=== PATIENT | female | born 1940 | race Caucasian/White ===

== ENCOUNTER 2021-04-11 22:57 | Emergency (ER) | payer MEDICARE ==
[2021-04-12] MEDS ORDERED: Bacitracin 1 PK ONE (00:17)
[2021-04-12] MEDS ORDERED: Lidocaine 1% (PF) 30 ML VIAL ONE (00:18)
[2021-04-12] MEDS ORDERED: Morphine 4 MG/ML VIAL ONE (00:18)
[2021-04-12] MEDS ORDERED: Ondansetron PF 4 MG/2 ML Vial ONE (00:18)
[2021-04-12 00:23] LABS: #Basophils 0.1 10x3/uL (0.0-0.2); #Eosinphils 0.8 10x3/uL (0.0-0.5); #Neutrophils 7.9 10x3/uL (1.5-8.4); %Eosinophils 6.6 % (0.0-6.0); %Monocytes 8.4 % (0.0-10.0); %Neutrophils 67.7 % (40.0-75.0); Hemoglobin 10.8 g/dL (12.0-15.5); Mean Corpuscular HGB CONC 30.6 g/dL (32.0-36.0); Mean Corpuscular Hemoglobin 27.5 pg (27.0-33.0); Mean Corpuscular Volume 89.8 fl (81.6-98.3); Mean Platelet Volume 11.9 fl (7.4-10.4); Platelet Count 192 10x3/uL (150-450); RBC Distribution Width 14.1 % (11.5-14.5); Red Blood Cell (RBC) Count 3.93 10x6/uL (3.90-5.03); White Blood Cell (WBC) Count 11.7 10x3/uL (3.5-10.5)
[2021-04-12 00:37] LABS: ALT (SGPT) 12 U/L (8-55); AST (SGOT) 20 U/L (5-34); Albumin 3.9 g/dL (3.4-4.8); Alkaline Phosphatase 112 U/L (40-110); Anion Gap 13 mmol/L (10-20); BUN (Urea Nitrogen) 20 mg/dL (9.8-20.1); Bilirubin, Total 0.3 mg/dL (0.2-1.2); Calc. Creatinine Clearance 0 mL/min (70-130); Calcium 9.2 mg/dL (7.8-10.44); Carbon Dioxide 21 mmol/L (23-31); Chloride 107 mmol/L (98-107); Globulin 2.5 g/dL (2.4-3.5); Glucose 170 mg/dL (83-110); Magnesium 1.9 mg/dL (1.6-2.6); Protein, Total 6.4 g/dL (5.8-8.1); Sodium 137 mmol/L (136-145)
[2021-04-12 00:45] LABS: INR-International Normal Ratio 0.9; PTT 23.9 sec (22.0-33.0); Prothrombin Time 10.2 sec (9.5-12.1)
== END 2021-04-12 02:13 | disposition short-term general hospital (02) ==
LOC: CSHERS 22:57
DX: S06.5X9A Traumatic subdural hemorrhage with loss of consciousness of unspecified duration, initial encounter (principal); S02.2XXA Fracture of nasal bones, initial encounter for closed fracture; S01.511A Laceration without foreign body of lip, initial encounter; E07.89 Other specified disorders of thyroid; I25.10 Atherosclerotic heart disease of native coronary artery without angina pectoris; I10 Essential (primary) hypertension; Z79.899 Other long term (current) drug therapy; W19.XXXA Unspecified fall, initial encounter; Y92.009 Unspecified place in unspecified non-institutional (private) residence as the place of occurrence of the external cause
CPT/HCPCS: 12011; 36415; 70450; 70486; 72125; 80053; 83735; 84484; 85025; 85610; 85730; 86850; 86900; 86901; 93005; 96374; 96375; J2001; J2270; J2405

== ENCOUNTER 2022-12-01 13:26 | Outpatient (CLI) | payer MEDICARE | END 2022-12-01 13:27 | disposition home or self-care (01) | LOC: CSHMAMMO 13:26 | PROVIDERS: ATTEND Family Medicine | DX: Z12.31 Encounter for screening mammogram for malignant neoplasm of breast (principal) | CPT/HCPCS: 77063; 77067 ==

== ENCOUNTER 2022-12-29 10:19 | Outpatient (CLI) | payer MEDICARE | END 2022-12-29 10:20 | disposition home or self-care (01) | LOC: CSHULT 10:19 | PROVIDERS: ATTEND Family Medicine | DX: R10.13 Epigastric pain (principal); K80.20 Calculus of gallbladder without cholecystitis without obstruction; K82.9 Disease of gallbladder, unspecified | CPT/HCPCS: 76700 ==

== ENCOUNTER 2023-01-12 09:44 | Day surgery (SDC) | payer MEDICARE ==
[2023-01-10 15:08] VITALS: BMI 23.4
[2023-01-12] MEDS ORDERED: PROPOFOL 20 ML ONE (10:19)
[2023-01-12] MEDS ORDERED: Lidocaine 2% MPF 10 ML AMP (For Epidural Use) ONE (10:19)
== END 2023-01-12 12:32 | disposition home or self-care (01) ==
LOC: CSHSDC 09:44
PROVIDERS: ATTEND Internal Medicine Gastroenterology
PROC: 0DB98ZX Excision of Duodenum, Via Natural or Artificial Opening Endoscopic, Diagnostic (ICD-10-PCS; principal; 2023-01-12)
DX: K21.9 Gastro-esophageal reflux disease without esophagitis (principal); K29.50 Unspecified chronic gastritis without bleeding; K44.9 Diaphragmatic hernia without obstruction or gangrene; I25.10 Atherosclerotic heart disease of native coronary artery without angina pectoris; I10 Essential (primary) hypertension; Z88.5 Allergy status to narcotic agent; Z88.8 Allergy status to other drugs, medicaments and biological substances
CPT/HCPCS: 88305; J2704

== ENCOUNTER 2023-01-19 09:13 | Emergency (ER) | payer MEDICARE ==
[2023-01-19 10:27] LABS: #Basophils 0.1 10x3/uL (0.0-0.2); #Eosinphils 0.4 10x3/uL (0.0-0.5); #Monocytes 0.7 10x3/uL (0.0-1.1); #Neutrophils 4.4 10x3/uL (1.5-8.4); %Basophils 1.1 % (0.0-2.0); %Eosinophils 5.4 % (0.0-6.0); %Lymphocytes 21.7 % (18.0-47.0); %Neutrophils 61.5 % (40.0-75.0); Hematocrit 40.7 % (34.9-44.5); Hemoglobin 13.8 g/dL (12.0-15.5); Mean Corpuscular HGB CONC 33.9 g/dL (32.0-36.0); Mean Corpuscular Hemoglobin 30.6 pg (27.0-33.0); Mean Corpuscular Volume 90.2 fl (81.6-98.3); Mean Platelet Volume 11.5 fl (7.4-10.4); Platelet Count 235 10x3/uL (150-450); RBC Distribution Width 13.6 % (11.5-14.5); Red Blood Cell (RBC) Count 4.51 10x6/uL (3.90-5.03); White Blood Cell (WBC) Count 7.2 10x3/uL (3.5-10.5)
[2023-01-19 10:54] LABS: ALT (SGPT) 12 U/L (8-55); AST (SGOT) 23 U/L (5-34); Albumin 3.5 g/dL (3.4-4.8); Alkaline Phosphatase 81 U/L (40-110); Anion Gap 14 mmol/L (10-20); BUN (Urea Nitrogen) 7 mg/dL (9.8-20.1); Bilirubin, Total 1.1 mg/dL (0.2-1.2); Calc. Creatinine Clearance 0 mL/min (70-130); Calcium 9.5 mg/dL (7.8-10.44); Carbon Dioxide 34 mmol/L (23-31); Chloride 94 mmol/L (98-107); Estimated GFR 43; Globulin 2.5 g/dL (2.4-3.5); Glucose 132 mg/dL (83-110); Sodium 140 mmol/L (136-145)
[2023-01-19 11:01] LABS: Potassium 2.4 mmol/L (3.5-5.1)
[2023-01-19 12:00] LABS: Magnesium 1.7 mg/dL (1.6-2.6)
[2023-01-19] MEDS ORDERED: Magnesium 2 GM/50 ML BAG (IN WATER) ONE (13:02)
[2023-01-19] MEDS ORDERED: Potassium Chloride 20 MEQ TAB ONE (14:20)
== END 2023-01-19 14:56 | disposition home or self-care (01) ==
LOC: CSHERS 09:13
DX: E87.6 Hypokalemia (principal); I10 Essential (primary) hypertension; I25.10 Atherosclerotic heart disease of native coronary artery without angina pectoris; Z79.899 Other long term (current) drug therapy
CPT/HCPCS: 36415; 80053; 83735; 85025; 93005; 96365; 96366; J3475

== ENCOUNTER 2023-09-02 07:58 | Emergency (ER) | payer MEDICARE | END 2023-09-02 08:50 | disposition home or self-care (01) | LOC: CSHERS 07:58 | DX: S80.01XA Contusion of right knee, initial encounter (principal); S80.02XA Contusion of left knee, initial encounter; I10 Essential (primary) hypertension; W54.1XXA Struck by dog, initial encounter ==